=== PATIENT | female | born 1990 ===

== ENCOUNTER 2017-07-25 10:18 | Inpatient (IN) ==
[2017-07-25] MEDS ORDERED: SODIUM CHLORIDE 0.9% 1,000 ML IV STA (10:32)
[2017-07-25] MEDS ORDERED: SODIUM CHLORIDE 0.9% 250 ML IV PRN (10:33)
[2017-07-25 10:44] LABS: Basophils % 0.1 % (0.0-0.8); Hematocrit 22.3 VOL% (35.7-47.0); Hemoglobin 7.3 GM/DL (12.0-16.0); Immature Granulocytes % 0.9 %; Immature Granulocytes Absolute 0.17 #; Lymphocytes # 1.2 10*3/uL (1.4-4.0); Lymphocytes % 6.1 % (21.3-54.2); Mean Corpuscular HGB Conc 32.7 GM/DL (32-36); Mean Corpuscular Hemoglobin 27 PG (27-34); Mean Corpuscular Volume 82.6 FL (87-102); Mean Platelet Volume 10.7 FL (9.6-12.0); Monocytes # 0.5 10*3/uL (0.11-0.8); Monocytes % 2.6 % (1.7-12.7); Neutrophils # 17.5 10*3/uL (1.4-7.4); Neutrophils % 90.3 % (38.7-73.9); Platelet Count 283 T/CUMM (130-400); Red Cell Distribution Width 14.7 % (9.3-17.3); White Blood Count 19.3 T/CUMM (4-12)
[2017-07-25] MEDS ORDERED: ONDANSETRON 4 MG/2 ML VIAL ONE ×2 (10:59→11:59)
--- NOTE | 2017-07-25 10:59 | OB/GYN History & Physical ---
History of Present Illness Chief complaint: Vaginal bleeding History of present illness: Ms. Holland is a 26 year old female 26-year-old 1 para 0 last menstrual period was in sometime in April 2017 , presented to the [facility] last evening and subsequently continue to bleed and presented to the [facility]. Patient bled significantly that the paramedics in route to [facility] administered fluids and tia-Synephrine to an increasedl perfusion. On arrival to the emergency room. Patient had a faint pulse she was resuscitated with more volume and O- blood was administered. Ultrasound of the pelvis demonstrated no blood in the abdomen. Possibility of products of conception in the vaginal vault. She was examined in the emergency room by Dr. Reyes and found to have products of conception vaginal vault and also extruding from the cervical loss. Surgery was notified to prepare this patient for a suction curettage and also to continue with a type and cross for more blood products. These was discussed with the family members and all parties were in agreement. Home Medications Medication Instructions Recorded Confirmed Type Unable To Obtain [Unable to Obtain] 08/22/16 08/22/16 History Allergies Allergy/AdvReac Type Severity Reaction Status Date / Time No Known Allergies Allergy Unverified 08/22/16 17:02 Medical,Surgical,& Family Hx - Medical History Psychological: History of: Psychiatric Problems - Social History Smoking Status: Unknown if ever smoked Exam [employer] - Constitutional Vitals: Vital Signs Temp Pulse Resp BP Pulse Ox 07/25/17 10:19 97.2 F L 109 H 20 98/49 97 General appearance: severe distress - Antepartum / Post Antepartum Exam Cervix - Dilatation: Eyes open with products of conception - Head Head exam: Present: normocephalic - Eye Eye exam: Present: EOMI Pupils: Present: ZULY - ENT ENT exam: Present: normal exam - Respiratory Respiratory exam: Present: clear to auscultation bilaterally - Breast Breasts: as per HPI Menstruation: as per HPI - Cardiovascular Cardiovascular exam: Present: tachycardia - GI/Abdominal GI/Abdominal exam: Present: soft, other (Nontender, nondistended) - Extremities Exam Extremities exam: Present: normal inspection - Back Exam Back exam: Present: normal inspection - Neurological Exam Neurological exam: Present: alert, oriented X3 - Psychiatric Psychiatric exam: Present: normal affect - Skin Skin exam: Present: normal color Assessment and Plan (1) Incomplete Status: Acute Assessment and plan: Section curettage, blood products, IV fluids Current Visit: Yes Results - Labs CBC & BMP: 07/25/17 10:35
[2017-07-25] MEDS ORDERED: ONDANSETRON 4 MG/2 ML VIAL IV STA (11:02)
--- NOTE | 2017-07-25 11:05 | Ultrasound Report ---
Exam: US pelvic complete Date: 07/25/2017 10:32 AM Comparison: None Indication: Vaginal bleeding Technique:[Transabdominal real-time scans were obtained of the pelvis. Color-flow scans obtained. Ultrasound images were captured and stored.] Findings: The uterus is anteverted in its position and measures 121 x 60 x 47 mm. The endometrial stripe measures 20 mm. There is a 25 mm saccular structure projecting at the level of the dilated cervix. No pole or yolk sac identified. Right ovary measures 25 x 36 x 25 mm and contains a 25 x 20 x 23 mm complex cyst. The left ovary measures 27 x 22 x 16 mm and contains a 16 x 14 x 10 mm minimally complex cyst. No adnexal mass or free fluid. Impression: Findings consistent with incomplete with 25 mm empty saccular structure at the level of the dilated cervix. Also the endometrial stripe is thickened measuring 20 mm which can be seen with additional retained products of conception. 25 mm right and 16 mm left minimally complex ovarian cysts. Findings were discussed with Dr. Ramos at 11:00 AM on 07/25/2017. Critical test results PROCEDURE INTERPRETED AT [facility] DEPARTMENT OF RADIOLOGY Final Report Signed by: Dr. Maggie Baldwin
--- NOTE | 2017-07-25 11:07 | Emergency Department Note ---
Glenn Ureña Brittany, am scribing for, and in the presence of, Dago Ramos MD 10:29. Richard Ureña Doug C, MD, personally performed the services described in this documentation, ascribed by Arin Elizabeth in my presence, and it is both accurate and complete . Arrival - Arrival Chief Complaint: Urogenital - Female Stated Complaint: vaginal bleeding ED Nursing Triage Note: vaginal bleeding transfer from [facility] Mode of Arrival: Stretcher Limitations: No Limitations Source: Patient, EMS, RN Notes Reviewed Time Seen by Provider: 07/25/17 10:22 - History of Present Illness HPI Narrative: Patient is a 26-year-old 1 para 0 [place] female was transferred here emergently from the [facility] for heavy vaginal bleeding and shock. Patient apparently started bleeding last night and cramping. She has passed quite a bit of blood and large clots. She did not pass any tissue that she is aware of. Patient was seen [facility] last night and was told to go to [facility] emergency room today. They attempted a ultrasound there but there is no report available. Patient was given 4 L of normal saline and started on Levophed in route here. On arrival here she is awake, talking and able to answer questions appropriately. I could not palpate a radial or femoral pulse. She still had heavy vaginal bleeding on arrival here. Onset (ago): day(s) (1) Consistency: constant Date of Last Menstrual Period: 05-01-17 Allergies/Adverse Reactions: Allergies Allergy/AdvReac Type Severity Reaction Status Date / Time No Known Allergies Allergy Unverified 08/22/16 17:02 Home Medications: Home Medications Medication Instructions Recorded Confirmed Type No Known Home Medications [No 07/25/17 07/25/17 History Known Home Medications] Review of System - Review of System 12 point system: reviewed and no additional remarkable complaints except as stated - Review of System Constitutional: Present: chills. Absent: fever Eyes: Absent: vision change Head/Ears/Nose/Throat: Absent: nasal drainage, sore throat Respiratory: Absent: respiratory distress Cardiovascular: Present: syncope. Absent: chest pain Gastrointestinal: Present: abdominal pain. Absent: nausea, vomiting, diarrhea, constipation, melena, hematochezia Genitourinary female: Present: other (vaginal bleeding) Musculoskeletal: Absent: arm pain, back pain, leg pain, neck pain Skin: Absent: rash Neurological: Absent: headache Psychiatric: Absent: anxiety, depression Hematological/Lymphatic: Absent: easy bleeding, easy bruising Medical,Surgical,& Family Hx - Medical History Psychological: History of: Psychiatric Problems - Surgical History Surgical History: noncontributory - Family History Family History: noncontributory - Social History Smoking Status: Unknown if ever smoked Exam Vital Signs: Vital Signs Temperature 97.2 F L 07/25/17 10:19 Pulse Rate 109 H 07/25/17 10:19 Respiratory Rate 20 07/25/17 10:19 Blood Pressure 98/49 07/25/17 10:19 O2 Sat by Pulse Oximetry 97 07/25/17 10:19 - General General appearance: alert, in distress (appears uncomfortable ) - Head Head exam: Present: atraumatic, normocephalic, normal inspection - Eye Eye exam: Present: PERRL, EOMI - ENT ENT exam: Present: normal exam, normal oropharynx - Neck Neck exam: Present: normal inspection, full ROM, trachea midline - Chest Chest inspection: Present: normal inspection, symmetric chest wall rise - Respiratory Respiratory exam: Present: normal lung sounds bilaterally. Absent: respiratory distress - Cardiovascular Cardiovascular exam: Present: normal rhythm, tachycardia, normal heart sounds. Absent: regular rate, murmur, rubs, gallop - Abdominal Exam Abdominal exam: Present: soft, tenderness (lower abdominal TTP), normal bowel sounds. Absent: distention - Extremities Exam Extremities exam: Present: normal inspection - Back Exam Back exam: Present: normal inspection - Neurological Exam Neurological exam: Present: alert, oriented X3, CN II-XII intact. Absent: motor sensory deficit - Psychiatric Psychiatric exam: Present: normal affect - Skin Skin exam: Present: warm, dry, intact, pallor. Absent: normal color Course Course Narrative: Patient had IV access 2, she received 4 L of saline prior to arrival here. She also needed blood. O- blood was ordered due to her hypotension, pallor and mottling of her lips. She is receiving transfusion at present. I discussed her clinical presentation laboratory findings with Dr. True Reyes who saw the patient promptly here in the emergency room. She will be taken to the operating room for emergent D&C. Bedside ultrasound revealed patient to have products of conception the cervical loss but there is no intra-abdominal blood suggesting an ectopic. Both ovaries appear normal on ultrasound. Results - Labs CBC & BMP: 07/25/17 10:35 Lab Results: I have reviewed the patients labs Labs: Laboratory Tests 07/25/17 10:35 WBC 19.3 H RBC 2.70 L Hgb 7.3 L Hct 22.3 L MCV 82.6 L Plt Count 283 Neut % (Auto) 90.3 H Lymph % (Auto) 6.1 L Neut # (Auto) 17.5 H Lymph # (Auto) 1.2 L Critical Care Time Critical Care Time: Yes Total Critical Care Time: 45 Attestation: Patient arrived emergency room and hypovolemic shock. IVs 2 were present. Patient was typed and screened for blood but given O- blood due to need for resuscitation. Patient was discussed with Dr. True Reyes who saw her promptly in the emergency room. The operating room was notified and emergent D& C has been ordered. Bedside ultrasound revealed patient to have incomplete with products of conception in the cervical os. Patient's consent the patient was discussed with both her and her mother. Total of 45 minutes were consumed with emergent care of this patient. Disposition Clinical Impression: Incomplete , Hypovolemic shock Case discussed with: patient, patient's family Disposition: Still a Patient Condition: Critical Time of Disposition: 11:04
[2017-07-25 11:08] LABS: Alanine Aminotransferase 13 U/L (13-56); Albumin 2.5 G/DL (3.4-5.0); Alkaline Phosphatase 66 U/L (45-117); Aspartate Amino Transferase 11 U/L (0-37); Bilirubin,Total < 0.39 MG/DL (0.2-1.0); Blood Urea Nitrogen 14 MG/DL (7-18); Calcium 7.1 MG/DL (8.5-10.1); Glucose 132 MG/DL (74-106); Osmolality,Calculated 285.1 MOS/KG (273-304); Potassium 4.3 MMOL/L (3.5-5.1); Sodium 142 MMOL/L (136-145); Total Protein 4.9 G/DL (6.4-8.3)
[2017-07-25 11:11] LABS: Apearance,Urine CLEAR (Clear); Bilirubin,Urine Negative (Negative); Blood, Urine Negative (Negative); Glucose,Urine (UA) 50 mg/dL (Negative); Ketones,Urine 20 mg/dL (Negative); Mucus,Urine Occasional /LPF (Occasional); Nitrite,Urine Negative (Negative); Protein,Urine Negative; RBC,Urine 1 /HPF (0-4); Squamous Epithelial Cell,Urine Occasional /HPF (0-10); Urine Color Yellow (Yellow); Urine Specific Gravity 1.012 (1.001-1.035); Urine Urobilinogen < 2.0 EU/DL (0.2-1.0); WBC,Urine 2 /HPF (0-6)
[2017-07-25] MEDS ORDERED: METHYLERGONOVINE 0.2 MG/1 ML AMP ONE (11:21)
[2017-07-25] MEDS ORDERED: OXYTOCIN/LR 20 UNIT/1,000 ML BAG IV ONE ×3 (11:21→17:59)
--- NOTE | 2017-07-25 11:42 | Operative Note ---
Date of procedure: 07/25/17 Procedure: Preoperative diagnosis: [] Incomplete AB Postoperative diagnosis: Same Anesthesia: General. endotracheal anesthesia Estimated blood loss: [] 100 cc Surgeon: Dr. Reyes Procedure: Dilatation and curettage The patient was taken to operating suite and placed in supine position and preparation of the perineum. A weighted speculum was placed in the posterior portion vagina and a single-tooth tenaculum was used to grasp the anterior lip of the cervix. The cervix was dilated to [10] Cymro A suction curette was then placed inside. Gentle scraping was obtained in all 4 quadrants. [A moderate amount of tissue was obtained] at this particular time. Hemostasis was maintained at this particular time. Patient was extubated in the operating room and taken to recovery room in stable condition. Patient was receiving packed RBCs intraoperatively from all the excessive bleeding prior to being admitted to the operating room. Surgeon / Physician: Jose Reyes Discharge Plan - Discharge Medications No Action No Known Home Medications [No Known Home Medications] - Follow Up or Referral - Forms/Instructions
[2017-07-25] MEDS ORDERED: RHO(D) IMMUNE GLOBULIN 300 MCG SYRINGE IM ONE (11:48)
[2017-07-25] MEDS ORDERED: DIPH/TET/ACEL PERT BOOSTER VACCINE 0.5 ML VIAL IM ONE (11:48)
[2017-07-25] MEDS ORDERED: BISACODYL 10 MG SUPP RECTAL PRN (11:48)
[2017-07-25] MEDS ORDERED: BENZOCAINE 20%/MENTHOL 0.5% SPRAY 56 GM CAN TOP PRN (11:48)
[2017-07-25] MEDS ORDERED: oxyCODONE/ACETAMINOPHEN 5-325 MG TABLET PO PRN ×2 (11:48)
[2017-07-25] MEDS ORDERED: ONDANSETRON 4 MG/2 ML VIAL IV PRN (11:48)
[2017-07-25] MEDS ORDERED: ACETAMINOPHEN 325 MG TABLET PO PRN (11:48)
[2017-07-25] MEDS ORDERED: IBUPROFEN 800 MG TABLET PO PRN (11:48)
[2017-07-25] MEDS ORDERED: WITCH HAZEL PADS 100/JAR TOP PRN (11:48)
[2017-07-25] MEDS ORDERED: MEASLES/MUMPS/RUBELLA VACCINE 0.5 ML VIAL SUBCUT ONE (11:48)
[2017-07-25] MEDS ORDERED: HYDROCORTISONE 2.5% RECTAL CREAM 30 GM TUBE TOP PRN (11:48)
[2017-07-25] MEDS ORDERED: LANOLIN 50% CREAM 0.3 OZ TUBE TOP PRN (11:48)
--- NOTE | 2017-07-25 11:55 | Anesthesia Post-Op ---
Anesthesia Post OP - Post Ansesthetic Evaluation Patient seen in post op: Yes Resp: within normal limits CV: within normal limits Mental: within normal limits Temp: within normal limits [id number]: within normal limits Nausea and Vomiting: within normal limits Pain: within normal limits
[2017-07-25] MEDS ORDERED: PROPOFOL 200 MG/20 ML VIAL IV ONE (11:58)
[2017-07-25] MEDS ORDERED: SEVOFLURANE 1 UNIT/15 MINUTE INH ONE (11:59)
[2017-07-25] MEDS ORDERED: MIDAZOLAM 2 MG/2 ML VIAL ONE (11:59)
[2017-07-25] MEDS ORDERED: SUCCINYLCHOLINE 200 MG/10 ML VIAL ONE (11:59)
[2017-07-25] MEDS ORDERED: ROCURONIUM 100 MG/10 ML VIAL IV ONE (11:59)
[2017-07-25] MEDS ORDERED: SODIUM CHLORIDE 0.9% 1,000 ML IV ONE (11:59)
[2017-07-25 13:10] LABS: Hematocrit 31.7 VOL% (35.7-47.0)
[2017-07-25 13:14] LABS: Hemoglobin 10.5 GM/DL (12.0-16.0); Platelet Count 211 T/CUMM (130-400)
[2017-07-25] MEDS ORDERED: INFLUENZA VIRUS VACCINE 0.5 ML SYRINGE IM ONE (16:52)
[2017-07-25] MEDS ORDERED: DOCUSATE SODIUM 100 MG CAPSULE PO SCH (21:00)
[2017-07-26] MEDS ORDERED: LACTATED RINGERS 1,000 ML IV SCH (06:00)
[2017-07-26 06:16] LABS: Basophils % 0.2 % (0.0-0.8); Eosinophils # 0.1 10*3/uL (0.0-0.87); Eosinophils % 1.6 % (0.00-10.9); Hematocrit 23.4 VOL% (35.7-47.0); Hemoglobin 7.8 GM/DL (12.0-16.0); Immature Granulocytes % 0.6 %; Immature Granulocytes Absolute 0.05 #; Lymphocytes # 2.4 10*3/uL (1.4-4.0); Lymphocytes % 26.4 % (21.3-54.2); Mean Corpuscular HGB Conc 33.3 GM/DL (32-36); Mean Corpuscular Hemoglobin 28 PG (27-34); Mean Corpuscular Volume 83.3 FL (87-102); Mean Platelet Volume 10.6 FL (9.6-12.0); Monocytes # 0.4 10*3/uL (0.11-0.8); Monocytes % 4.8 % (1.7-12.7); Neutrophils # 5.9 10*3/uL (1.4-7.4); Neutrophils % 66.4 % (38.7-73.9); Platelet Count 180 T/CUMM (130-400); Red Blood Count 2.81 MC/CUMM (3.8-5.5); Red Cell Distribution Width 15.1 % (9.3-17.3); White Blood Count 8.9 T/CUMM (4-12)
[2017-07-26 10:14] VITALS: BP 96/50
--- NOTE | 2017-07-26 11:02 | Discharge Summary ---
Hospital Course - Hospital Course Hospital Course: Pt feels good. No complaints. Ready to go home. Specialty Discharge - Follow Up or Referrals Discharge Plan - Discharge Data Disposition: Disch To Home/Self Care Condition at Discharge: Stable Discharge Diet: advance to your usual diet Activity: resume usual activities as tolerated Hygiene: may shower Weight Bearing at Discharge: full weight bearing Driving: no restrictions - Discharge Medications New Docusate Sodium Cap [Colace Cap] 100 mg PO DAILY #30 capsule Ferrous Sulfate ER Tab [Slow Fe] 140 mg PO DAILY #30 tablet Ibuprofen Tab [Motrin Tab] 800 mg PO Q6H PRN #20 tablet PRN Reason: Pain Moderate (4-7) - Follow Up or Referral - Forms/Instructions Instructions: Dilation and Curettage (DC) Exam - Constitutional Vitals: Period Temp Pulse Resp BP Sys/Gore Pulse Ox Last 24 Hr 96.5 F-99.3 F 71-116 14-24 90-147/46-80 95-100 General appearance: no acute distress - Head Head exam: Present: normal inspection, normocephalic - Eye Eye exam: Present: EOMI Pupils: Present: ZULY - GI/Abdominal GI/Abdominal exam: Present: soft Discharge Results Procedures and tests throughout hospitalization: Pending Orders 07/25/17 10:35 Red Blood Cells Leuko Red Stat Type and Screen Stat Labs on day of discharge: Labs from last 24 hours 07/26/17 07/25/17 07/25/17 06:04 13:02 10:57 WBC 8.9 D RBC 2.81 L Hgb 7.8 L D 10.5 L D Hct 23.4 L 31.7 L MCV 83.3 L MCH 28 MCHC 33.3 RDW 15.1 Plt Count 180 211 D MPV 10.6 Neut % (Auto) 66.4 Lymph % (Auto) 26.4 [place] % (Auto) 4.8 Eos % (Auto) 1.6 Baso % (Auto) 0.2 Neut # (Auto) 5.9 Lymph # (Auto) 2.4 [place] # (Auto) 0.4 Eos # (Auto) 0.1 Baso # (Auto) 0.0 Immature Gran % 0.6 Nucleated RBC % 0.0 Immature Gran # 0.05 Nucleated RBCs # 0.00 Immature Plt Fraction 0.0 Sodium Potassium Chloride Carbon Dioxide Anion Gap BUN Creatinine GFR Calculation BUN/Creatinine Ratio Glucose Calculated Osmolality Calcium Total Bilirubin AST ALT Alkaline Phosphatase Total Protein Albumin Globulin Albumin/Globulin Ratio Urine Color Yellow Urine Appearance Clear Urine pH 7.0 Ur Specific [place] 1.012 Urine Protein Negative Urine Glucose (UA) 50 Urine Ketones 20 Urine Blood Negative Urine Nitrate Negative Urine Bilirubin Negative Urine Urobilinogen < 2.0 H Urine Leukocytes Negative Urine RBC 1 Urine WBC 2 Ur Squamous Epith Cells Occasional Urine Mucus Occasional Ur Culture Indicated? Not indicated Blood Type Antibody Screen Crossmatch 07/25/17 07/25/17 07/25/17 10:35 10:35 10:35 WBC RBC Hgb Hct MCV MCH MCHC RDW Plt Count MPV Neut % (Auto) Lymph % (Auto) [place] % (Auto) Eos % (Auto) Baso % (Auto) Neut # (Auto) Lymph # (Auto) [place] # (Auto) Eos # (Auto) Baso # (Auto) Immature Gran % Nucleated RBC % Immature Gran # Nucleated RBCs # Immature Plt Fraction Sodium 142 Potassium 4.3 Chloride 113 H Carbon Dioxide 20 L Anion Gap 13.3 BUN 14 Creatinine 0.90 GFR Calculation 89 BUN/Creatinine Ratio 15.00 Glucose 132 H Calculated Osmolality 285.1 Calcium 7.1 L Total Bilirubin < 0.39 AST 11 ALT 13 Alkaline Phosphatase 66 Total Protein 4.9 L Albumin 2.5 L Globulin 2.4 Albumin/Globulin Ratio 1.0 L Urine Color Urine Appearance Urine pH Ur Specific [place] Urine Protein Urine Glucose (UA) Urine Ketones Urine Blood Urine Nitrate Urine Bilirubin Urine Urobilinogen Urine Leukocytes Urine RBC Urine WBC Ur Squamous Epith Cells Urine Mucus Ur Culture Indicated? Blood Type O POSITIVE O POSITIVE Antibody Screen Negative Crossmatch See Detail DS: Provider Date of admission: 07/25/17 11:48 Attending physician on admission: Jose Reyes MD Consults: 07/25/17 11:48 Consult to Card Hanger [CONS] Routine Consult Card Hanger: Breast Feeding Discharging clinician: Jaz Schwarz MD
--- NOTE | 2017-07-29 09:22 | Pathology Report from [facility] ---
[facility] ACCESSION # : [id number] PATIENT NAME : Madi Holland ORDERING DR : GUILLERMO GUTHRIE MD CLINICAL HX: Incomplete POST-OP DX: Same SPECIMEN INFO: Uterine contents GROSS DESCRIPTION: The specimen is received in formalin labeled with the patients name MADI HOLLAND consists of an aggregate of hemorrhagic tissue measuring 10.0 x 9.0 cm. Possible chorionic villi is identified. No tissue is seen. [employer] tissue is submitted in cassettes A thru F. DIAGNOSIS FOR MADI HOLLAND: UTERINE CONTENTS: Fragments of decidualized endometrium and chorionic villi admixed with blood and hemorrhage, c/w products of conception. No parts identified. COLLECTED DATE: 07/25/2017 [facility] REPORT DATE: 07/28/2017 ELECTRONICALLY SIGNED BY: Pricila Sarha M.D. 07/28/2017 - 9:31:58 [facility]
== END 2017-07-26 12:15 | disposition home or self-care (01) | DRG 770 ==
LOC: EDUNIT# → EDBD → N.ED 10:18 → N.SDSINP 11:10 → N.ED 11:10 → N.SDS 11:44 → N.SDSINP 11:45 → N.OB 11:48
PROVIDERS: ADMIT Obstetrics & Gynecology; ATTEND Obstetrics & Gynecology